=== PATIENT | male | born 1990 | race Caucasian/White ===

== ENCOUNTER 2024-01-04 18:41 | Emergency (ER) | payer MEDICAID ==
[~2024-01-04] VITALS: Ht 172.7 cm; Wt 72.6 kg
[2024-01-04 19:04] VITALS: BP_SYST 130; PULSE 78; RESP 18; TEMP 97.8; O2SAT 98
[2024-01-04] MEDS: DIPHENHYDRAMINE INJ 50 MG/ML VIAL IVP ONE (19:42)
[2024-01-04] MEDS: METOCLOPRAMIDE HCL 10 MG/2 ML VIAL IVP ONE (19:42)
[2024-01-04 20:28] LABS: BASOPHILS # (AUTO) 0.1 K/uL (0.0-0.2); BASOPHILS % (AUTO) 0.8 % (0.0-2.0); EOSINOPHILS % (AUTO) 0.7 % (0.0-4.0); HEMATOCRIT 44.3 % (36-54); HEMOGLOBIN 15.3 g/dL (14.0-18.0); LYMPHOCYTES # (AUTO) 1.6 K/uL (1.0-5.5); LYMPHOCYTES % (AUTO) 24.8 % (20.5-51.5); MEAN CORPUSCULAR HEMOGLOBIN 35 pg (27-31); MEAN CORPUSCULAR HGB CONC 35 % (32-36); MEAN CORPUSCULAR VOLUME 101 fL (79.0-98.0); MONOCYTES # (AUTO) 0.5 K/uL (0.0-1.0); MONOCYTES % (AUTO) 8.4 % (1.7-9.3); NEUTROPHILS # (AUTO) 4.2 K/uL (1.8-7.7); NEUTROPHILS % (AUTO) 65.3 % (40.0-70.0); PLATELET COUNT (AUTO) 349 K/uL (130-430); RED BLOOD CELL COUNT(AUTO) 4.38 MIL/uL (4.2-6.2); WHITE BLOOD COUNT (AUTO) 6.4 K/uL (4.8-10.8)
[2024-01-04 20:41] LABS: INR 1.1 (0.80-1.20)
[2024-01-04 20:43] LABS: ALANINE AMINOTRANSFERASE 25 U/L (12-78); ALBUMIN 4.8 g/dL (3.4-4.8); ANION GAP 6 (5-15); ASPARTATE AMINOTRANSFERASE 26 U/L (10-37); CALCIUM 9.1 mg/dL (8.4-11.0); CARBON DIOXIDE 33 mmol/L (23-29); CHLORIDE 101 mmol/L (98-107); CREATININE 1.09 mg/dL (0.55-1.30); GFR AFRICAN AMERICAN 100 mL/min (>90); GLUCOSE 86 mg/dL (74-106); POTASSIUM 3.4 mmol/L (3.5-5.1); SODIUM SERUM 140 mmol/L (136-145); TOTAL BILIRUBIN 1.5 mg/dL (0.0-1.0); TOTAL PROTEIN, SERUM 7.6 g/dL (6.4-8.3); UREA NITROGEN, BLOOD 8 mg/dL (8-21)
[2024-01-04 20:50] LABS: BILIRUBIN,DIRECT 0.3 mg/dL (0.0-0.3)
[2024-01-04 20:52] LABS: ACETAMINOPHEN < 1 ug/mL (1-30); ALCOHOL, BLOOD < 3 mg/dL (<10); GFR NON AFRICAN-AMERICAN 82 mL/min (>90); SALICYLATE < 1 mg/dL (3-30)
[2024-01-04 21:02] LABS: BILIRUBIN,URINE 1+ (NEGATIVE); CLARITY/URINE CLEAR (CLEAR); COLOR,URINE YELLOW (YELLOW); GLUCOSE,URINE NEGATIVE (NEGATIVE); KETONES,URINE 1+ (NEGATIVE); LEUKOCYTE ESTERASE ,URINE NEGATIVE (NEGATIVE); NITRITE, URINE NEGATIVE (NEGATIVE); PROTEIN URINE NEGATIVE (NEGATIVE)
[2024-01-04 21:03] LABS: BLOOD, URINE TRACE (NEGATIVE)
[2024-01-04 21:18] LABS: BARBITURATE, URINE NEGATIVE (NEG <=200); BENZODIAZEPINE, URINE NEGATIVE (NEG <=150); CANNABINOID, URINE POSITIVE (NEG <=50); COCAINE, URINE POSITIVE (NEG <=150); METHAMPHETAMINES SCREEN,URINE NEGATIVE (NEG <=500); OPIATE, URINE NEGATIVE (NEG <=100); PHENCYCLIDINE SCREEN,URINE POSITIVE (NEG <=25); UR TRICYCLIC ANTIDEPRESSANTS NEGATIVE (NEG <=300); URINE AMPHETAMINE NEGATIVE (NEG <=500); URINE METHADONE NEGATIVE (NEG <=200); URINE OXYCODONE SCREEN NEGATIVE (NEG <=100)
[2024-01-04 21:30] LABS: BACTERIA,URINE RARE /HPF (None Seen); WBC,URINE 0-3 /HPF (0-3)
[2024-01-04] MEDS: MORPHINE 2 MG/ML INJ. SYRINGE IVP ONE (21:34)
[2024-01-04] MEDS: OLANZapine IntraMuscular 10 MG VIAL (FOR I.M. INJECTION ONLY) IM ONE (21:49)
[2024-01-04] MEDS: PANTOPRAZOLE SODIUM 40 MG/VIAL (PROTONIX) IVP ONE (22:36)
[2024-01-05] MEDS: LORazepam 2 MG/ML VIAL IVP ONE (00:54)
[2024-01-05 02:01] LABS: BASOPHILS % (AUTO) 0.3 % (0.0-2.0); HEMATOCRIT 42.9 % (36-54); LYMPHOCYTES # (AUTO) 0.5 K/uL (1.0-5.5); LYMPHOCYTES % (AUTO) 6.8 % (20.5-51.5); MEAN CORPUSCULAR HEMOGLOBIN 35 pg (27-31); MEAN CORPUSCULAR HGB CONC 35 % (32-36); MEAN CORPUSCULAR VOLUME 101 fL (79.0-98.0); MONOCYTES # (AUTO) 0.2 K/uL (0.0-1.0); MONOCYTES % (AUTO) 2.8 % (1.7-9.3); NEUTROPHILS # (AUTO) 6.2 K/uL (1.8-7.7); NEUTROPHILS % (AUTO) 90.1 % (40.0-70.0); PLATELET COUNT (AUTO) 339 K/uL (130-430); RED BLOOD CELL COUNT(AUTO) 4.26 MIL/uL (4.2-6.2); RED CELL DISTRIBUTION WIDTH 12.7 % (9.0-15.0); WHITE BLOOD COUNT (AUTO) 6.9 K/uL (4.8-10.8)
[2024-01-05 02:02] LABS: CREATININE 0.9 mg/dL (0.55-1.30); POTASSIUM 3.4 mmol/L (3.5-5.1)
[2024-01-05 05:30] LABS: AMYLASE 56 U/L (0-100); LIPASE 34 U/L (16-77)
[2024-01-05] MEDS: HALOPERIDOL LACTATE 5 MG/ML VIAL IM ONE ×2 (07:20→18:24)
[2024-01-06] MEDS: HALOPERIDOL LACTATE 5 MG/ML VIAL IM ONE ×2 (02:53→09:07)
[2024-01-06 15:51] VITALS: BP_SYST 129; PULSE 94; RESP 12; TEMP 97.4; O2SAT 96
== END 2024-01-06 15:51 ==
LOC: SED 18:41
DX: R45.851 Suicidal ideations (principal); R11.10 Vomiting, unspecified; R00.0 Tachycardia, unspecified; F31.9 Bipolar disorder, unspecified
CPT/HCPCS: 99285; 96374; 96375 ×2; 80307; 80076; 80048; 82150; 83690; 85025; 85610; 85730; 36415; 93005; 81001; 74176; 96372 ×2; G0482; J1200; J2765; J2470; J2270; J1630 ×2; J2060; G0480; G0481; 81000; 81015; J3490